=== PATIENT | female | born 1980 | race Two or more races ===

== ENCOUNTER 2025-03-30 05:45 | Day surgery (SDC) | payer OTHER ==
[2025-03-22 12:56] VITALS: BP 135/85
[~2025-03-30] VITALS: Ht 154.9 cm; Wt 97.5 kg
[~2025-03-30 05:45] MED LIST: ADVAIR 100-501 EACH IH; EMGALITY P120 MG/1 M SQ; NEURONTIN600 M1 PO; SPIRIVA RESPIMAT4 GM
[2025-03-30] MEDS ORDERED: BUPIVACAINE HCL/Mpf 0.5% 10ML VIAL ONE (12:03)
[2025-03-30] MEDS ORDERED: CEFAZOLIN SODIUM 1,000 MG VIAL ONE (12:03)
[2025-03-30] MEDS ORDERED: LIDOCAINE HCL 1%/EPINEPHRINE 20ML VIAL IJ ONE (12:03)
[2025-03-30] MEDS ORDERED: BUPIVACAINE HCL/MPF 0.5% 30ML VIAL ONE (12:07)
[2025-03-30] MEDS ORDERED: SUGAMMADEX SODIUM 200 MG/2 ML VIAL IV ONE (13:18)
[2025-03-30] MEDS ORDERED: MORPHINE SULFATE 4 MG/ML VIAL IV ONE ×2 (14:10→14:40)
== END 2025-03-30 17:05 | disposition home or self-care (01) ==
LOC: CIR.AMB 05:45
PROVIDERS: ATTEND Orthopaedic Surgery
DX: M75.122 Complete rotator cuff tear or rupture of left shoulder, not specified as traumatic (principal); M75.02 Adhesive capsulitis of left shoulder; M75.32 Calcific tendinitis of left shoulder